=== PATIENT | male | born 1940 | race Caucasian/White ===

== ENCOUNTER → 2016-06-06 | Outpatient (REF) | payer MEDICARE ==
[2016-06-06 12:16] LABS: MEAN CORPUSCULAR HEMOGLOBIN 33.8 pg (27.0-33.0); MEAN CORPUSCULAR HGB CONC 34.3 g/dl (32.0-36.5); MEAN CORPUSCULAR VOLUME 98.8 fl (80.0-96.0); RED CELL DISTRIBUTION WIDTH 12.8 % (11.5-14.5); WHITE BLOOD COUNT 3.6 K/mm3 (4.0-10.0)
[2016-06-06 12:17] LABS: ALBUMIN 3.9 GM/DL (3.2-5.2); ALBUMIN/GLOBULIN RATIO 1.18 (1.00-1.93); BILIRUBIN,TOTAL 0.4 MG/DL (0.2-1.0); CALCIUM LEVEL 9.3 MG/DL (8.8-10.2); CREATININE FOR GFR 1.47 MG/DL (0.70-1.30); GLOMERULAR FILTRATION RATE 49.5 (>42); POTASSIUM SERUM 4.7 MEQ/L (3.5-5.1); TOTAL PROTEIN 7.2 GM/DL (6.4-8.2)
== END ==
LOC: M LABDRAW1 11:25
PROVIDERS: ATTEND Nurse Practitioner Family
DX: E55.9 Vitamin D deficiency, unspecified (principal); E78.5 Hyperlipidemia, unspecified; I10 Essential (primary) hypertension; D53.9 Nutritional anemia, unspecified

== ENCOUNTER → 2017-02-07 | Outpatient (REF) | payer MEDICARE ==
[2017-02-07 12:32] LABS: MEAN CORPUSCULAR HEMOGLOBIN 33.7 pg (27.0-33.0); MEAN CORPUSCULAR HGB CONC 33.5 g/dl (32.0-36.5); MEAN CORPUSCULAR VOLUME 100.5 fl (80.0-96.0); PLATELET COUNT, AUTOMATED 214 10^3/uL (150-450); RED CELL DISTRIBUTION WIDTH 12.8 % (11.5-14.5); WHITE BLOOD COUNT 5.1 10^3/uL (4.0-10.0)
[2017-02-07 12:43] LABS: ALBUMIN 3.7 GM/DL (3.2-5.2); ALBUMIN/GLOBULIN RATIO 0.95 (1.00-1.93); BILIRUBIN,TOTAL 0.5 MG/DL (0.2-1.0); CALCIUM LEVEL 8.8 MG/DL (8.8-10.2); CREATININE FOR GFR 1.5 MG/DL (0.70-1.30); GLOMERULAR FILTRATION RATE 48.2 (>42); POTASSIUM SERUM 4.4 MEQ/L (3.5-5.1); TOTAL PROTEIN 7.6 GM/DL (6.4-8.2)
== END ==
LOC: M LABDRAW1 10:32
PROVIDERS: ATTEND Nurse Practitioner Family
DX: E78.00 Pure hypercholesterolemia, unspecified (principal); I10 Essential (primary) hypertension

== ENCOUNTER → 2017-06-13 | Outpatient (REF) | payer MEDICARE ==
[2017-06-13 13:19] LABS: HEMATOCRIT 39.5 % (42.0-52.0); MEAN CORPUSCULAR HEMOGLOBIN 31.9 pg (27.0-33.0); MEAN CORPUSCULAR HGB CONC 32.9 g/dl (32.0-36.5); MEAN CORPUSCULAR VOLUME 96.8 fl (80.0-96.0); PLATELET COUNT, AUTOMATED 152 10^3/uL (150-450); RED BLOOD COUNT 4.08 10^6/uL (4.30-6.10); RED CELL DISTRIBUTION WIDTH 13.1 % (11.5-14.5); WHITE BLOOD COUNT 3.7 10^3/uL (4.0-10.0)
[2017-06-13 13:42] LABS: ESTIMATED AVERAGE GLUCOSE 123 MG/DL (60-110); HEMOGLOBIN A1c 5.9 %
[2017-06-13 13:43] LABS: TOTAL 25(OH) VITAMIN D 22.4 NG/ML (30.0-100.0)
[2017-06-13 13:44] LABS: ALBUMIN 3.6 GM/DL (3.2-5.2); ALBUMIN/GLOBULIN RATIO 1.09 (1.00-1.93); ALKALINE PHOSPHATASE 80 U/L (45-117); ALT/SGPT 17 U/L (12-78); ANION GAP 8 MEQ/L (8-16); AST/SGOT 19 U/L (7-37); BILIRUBIN,TOTAL 0.4 MG/DL (0.2-1.0); BLOOD UREA NITROGEN 21 MG/DL (7-18); CALCIUM LEVEL 8.3 MG/DL (8.8-10.2); CARBON DIOXIDE LEVEL 26 MEQ/L (21-32); CHLORIDE LEVEL 105 MEQ/L (98-107); CHOLESTEROL LEVEL 184 MG/DL (<200); CHOLESTEROL RISK RATIO 5.257 (<5); CREATININE FOR GFR 1.33 MG/DL (0.70-1.30); FREE T4 0.74 NG/DL (0.76-1.46); GLOMERULAR FILTRATION RATE 55.2 (>42); GLUCOSE, FASTING 101 MG/DL (70-100); HDL CHOLESTEROL 35 MG/DL (>40); LDL CHOLESTEROL 85.2 MG/DL (<100); NON-HDL-C 149 MG/DL; POTASSIUM SERUM 4.1 MEQ/L (3.5-5.1); SODIUM LEVEL 139 MEQ/L (136-145); TOTAL PROTEIN 6.9 GM/DL (6.4-8.2); TRIGLYCERIDES LEVEL 319 MG/DL (<150)
== END ==
LOC: M LABDRAW1 12:45
DX: E78.5 Hyperlipidemia, unspecified (principal); N18.3 Chronic kidney disease, stage 3 (moderate); I12.9 Hypertensive chronic kidney disease with stage 1 through stage 4 chronic kidney disease, or unspecified chronic kidney disease; E55.9 Vitamin D deficiency, unspecified; Z79.899 Other long term (current) drug therapy
CPT/HCPCS: 84443

== ENCOUNTER 2017-08-02 08:40 | Day surgery (SDC) | payer MEDICARE ==
[2017-08-02] MEDS: PROPARACAINE 0.5% OPHTH SOL 15ML OS (09:27)
[2017-08-02] MEDS: TROPICAMIDE 1% OPHTH SOLN 2ML OS (09:27)
[2017-08-02] MEDS: PHENYLEPHRINE 2.5% OPHTH SOL 2ML OS (09:27)
[2017-08-02] MEDS: OFLOXACIN 0.3 % (OCUFLOX) OPTH SOL 5ML OS (09:27)
[2017-08-02] MEDS ORDERED: fentaNYL 100 MCG/2 ML INJECTION (J3010) As Ordered (10:21)
[2017-08-02] MEDS ORDERED: MIDAZOLAM INJ 2 MG/2 ML VIAL (J2250) As Ordered (10:21)
[2017-08-02] MEDS: DUOVISC (0.50ML VISCOAT/0.55ML PROVISC) OPHTH KIT As Ordered (11:04)
[2017-08-02] MEDS: BALANCED SALT IRRIGATION SOLUTION 500ML BAG (FOR OR EYE MACHINE) As Ordered (11:04)
[2017-08-02] MEDS: POVIDONE-IODINE 5% OPHTH PREP SOL 30ML As Ordered (11:04)
[2017-08-02] MEDS: LIDOCAINE 0.75%/EPINEPHRINE 0.025% IN BSS 1ML SYR INTRACAMERAL (OR ONLY) As Ordered (11:05)
[2017-08-02] MEDS: CEFUROXIME 1MG/0.1ML INTRACAMERAL INJ As Ordered (11:05)
== END 2017-08-02 12:09 | disposition home or self-care (01) ==
LOC: M SDC 08:40
DX: H25.12 Age-related nuclear cataract, left eye (principal); H57.9 Unspecified disorder of eye and adnexa; I12.9 Hypertensive chronic kidney disease with stage 1 through stage 4 chronic kidney disease, or unspecified chronic kidney disease; E78.00 Pure hypercholesterolemia, unspecified; M19.012 Primary osteoarthritis, left shoulder; M54.30 Sciatica, unspecified side; R29.898 Other symptoms and signs involving the musculoskeletal system; G47.9 Sleep disorder, unspecified; N18.3 Chronic kidney disease, stage 3 (moderate); D63.1 Anemia in chronic kidney disease; Z88.4 Allergy status to anesthetic agent; Z79.899 Other long term (current) drug therapy; Z79.82 Long term (current) use of aspirin; Z87.891 Personal history of nicotine dependence
CPT/HCPCS: 66982

== ENCOUNTER 2017-08-09 09:48 | Day surgery (SDC) | payer MEDICARE ==
[~2017-08-09 09:48] MED LIST: PROPARACAINE 0.5% OPHTH SOL 15ML OD
[2017-08-09] MEDS: TROPICAMIDE 1% OPHTH SOLN 2ML OD (10:28)
[2017-08-09] MEDS: OFLOXACIN 0.3 % (OCUFLOX) OPTH SOL 5ML OD (10:28)
[2017-08-09] MEDS: PHENYLEPHRINE 2.5% OPHTH SOL 2ML OD (10:28)
[2017-08-09] MEDS ORDERED: fentaNYL 100 MCG/2 ML INJECTION (J3010) As Ordered (10:58)
[2017-08-09] MEDS ORDERED: MIDAZOLAM INJ 2 MG/2 ML VIAL (J2250) As Ordered (10:58)
[2017-08-09] MEDS ORDERED: LABETALOL HCL 100 MG/20 ML VIAL As Ordered (11:32)
[2017-08-09] MEDS: POVIDONE-IODINE 5% OPHTH PREP SOL 30ML As Ordered (11:35)
[2017-08-09] MEDS: BALANCED SALT IRRIGATION SOLUTION 500ML BAG (FOR OR EYE MACHINE) As Ordered (11:35)
[2017-08-09] MEDS: ACETYLCHOLINE OPHTH SOLN 1% 2ML (MIOCHOL-E) As Ordered (11:36)
[2017-08-09] MEDS: DUOVISC (0.50ML VISCOAT/0.55ML PROVISC) OPHTH KIT As Ordered (11:36)
[2017-08-09] MEDS: TETRACAINE 0.5% OPHTH SOLN 4ML As Ordered (11:36)
[2017-08-09] MEDS: CEFUROXIME 1MG/0.1ML INTRACAMERAL INJ As Ordered (11:36)
== END 2017-08-09 12:16 | disposition home or self-care (01) ==
LOC: M SDC 09:48
DX: H25.11 Age-related nuclear cataract, right eye (principal); H57.03 Miosis; I12.9 Hypertensive chronic kidney disease with stage 1 through stage 4 chronic kidney disease, or unspecified chronic kidney disease; E78.5 Hyperlipidemia, unspecified; N18.3 Chronic kidney disease, stage 3 (moderate); D63.8 Anemia in other chronic diseases classified elsewhere; Z88.4 Allergy status to anesthetic agent; Z79.899 Other long term (current) drug therapy
CPT/HCPCS: 66982

== ENCOUNTER → 2018-05-24 | Outpatient (REF) | payer MEDICARE ==
[~2018-05-24] MED LIST changes: +ASPI1TAB PO; +ATEN50TA2 PO; +MULT1TAB10 PO; -PROPARACAINE 0.5% OPHTH SOL 15ML OD; +SIMV20TA2 PO; +VITA-110 PO; +VITA50TA15 PO
[2018-05-24 12:04] LABS: HEMATOCRIT 39.7 % (42.0-52.0); HEMOGLOBIN 13.1 g/dl (13.5-17.5); MEAN CORPUSCULAR HEMOGLOBIN 32.7 pg (27.0-33.0); PLATELET COUNT, AUTOMATED 201 10^3/uL (150-450); RED BLOOD COUNT 4.01 10^6/uL (4.30-6.10); WHITE BLOOD COUNT 3.5 10^3/uL (4.0-10.0)
[2018-05-24 12:05] LABS: HEMATOCRIT 39.7 % (42.0-52.0)
[2018-05-24 13:09] LABS: ALBUMIN 3.7 GM/DL (3.2-5.2); BILIRUBIN,TOTAL 0.4 MG/DL (0.2-1.0); CALCIUM LEVEL 8.4 MG/DL (8.8-10.2); CHOLESTEROL RISK RATIO 4.405 (<5); CREATININE FOR GFR 1.41 MG/DL (0.70-1.30); FREE T4 0.81 NG/DL (0.76-1.46); GLOMERULAR FILTRATION RATE 51.6 (>42); POTASSIUM SERUM 4.4 MEQ/L (3.5-5.1); THYROID STIMULATING HORMONE 4.63 uIU/ML (0.358-3.740); TOTAL 25(OH) VITAMIN D 37.8 NG/ML (30.0-100.0); TOTAL PROTEIN 7.4 GM/DL (6.4-8.2)
[2018-05-24 13:52] LABS: HEMOGLOBIN A1c 6.2 %
== END ==
LOC: M LABDRAW1 09:30
PROVIDERS: ATTEND Family Medicine
DX: I12.9 Hypertensive chronic kidney disease with stage 1 through stage 4 chronic kidney disease, or unspecified chronic kidney disease (principal); E03.9 Hypothyroidism, unspecified; R73.03 Prediabetes; D53.9 Nutritional anemia, unspecified; Z79.899 Other long term (current) drug therapy

== ENCOUNTER → 2018-06-11 | Outpatient (REF) | payer MEDICARE | LOC: M SFHCPLAZ 11:28 | PROVIDERS: ATTEND Family Medicine | DX: D53.9 Nutritional anemia, unspecified (principal) | CPT/HCPCS: 36415; 82728; 83550; G0463 ==

== ENCOUNTER → 2019-05-07 | Outpatient (REF) | payer MEDICARE ==
[~2019-05-07] MED LIST changes: -ASPI1TAB PO; +ASPI81TA26 PO; -SIMV20TA2 PO; +SIMV20TA22 PO
[2019-05-07 11:00] LABS: HEMATOCRIT 36.3 % (42.0-52.0); HEMOGLOBIN 11.3 g/dl (13.5-17.5); MEAN CORPUSCULAR HEMOGLOBIN 32.1 pg (27.0-33.0); MEAN CORPUSCULAR HGB CONC 31.1 g/dl (32.0-36.5); MEAN CORPUSCULAR VOLUME 103.1 fl (80.0-96.0); PLATELET COUNT, AUTOMATED 222 10^3/uL (150-450); RED BLOOD COUNT 3.52 10^6/uL (4.30-6.10); WHITE BLOOD COUNT 3.2 10^3/uL (4.0-10.0)
[2019-05-07 11:17] LABS: ALBUMIN 3.4 GM/DL (3.2-5.2); BILIRUBIN,TOTAL 0.3 MG/DL (0.2-1.0); CALCIUM LEVEL 8.4 MG/DL (8.8-10.2); CREATININE FOR GFR 1.52 MG/DL (0.70-1.30); FREE T4 0.91 NG/DL (0.76-1.46); GLOMERULAR FILTRATION RATE 47.2 (>35); THYROID STIMULATING HORMONE 3.63 uIU/ML (0.358-3.740); TOTAL PROTEIN 7.2 GM/DL (6.4-8.2)
== END ==
LOC: M SFHCPLAZ 08:47
PROVIDERS: ATTEND Family Medicine
DX: D53.9 Nutritional anemia, unspecified (principal); I12.9 Hypertensive chronic kidney disease with stage 1 through stage 4 chronic kidney disease, or unspecified chronic kidney disease; N18.3 Chronic kidney disease, stage 3 (moderate); E03.9 Hypothyroidism, unspecified; R73.03 Prediabetes
CPT/HCPCS: 36415; 80053; 83036; 84439; 84443; 85027; G0463

== ENCOUNTER → 2019-05-16 | Outpatient (REF) | payer MEDICARE ==
[2019-05-16 15:51] LABS: HEMATOCRIT 36.8 % (42.0-52.0)
[2019-05-16 16:05] LABS: BASO % 0.3 % (0.0-1.0); EOS # 0.1 10^3/uL (0.0-0.5); HEMATOCRIT 36.8 % (42.0-52.0); HEMOGLOBIN 11.5 g/dl (13.5-17.5); LYMPH # 0.5 10^3/uL (1.5-5.0); LYMPH % 17.1 % (24.0-44.0); MEAN CORPUSCULAR HEMOGLOBIN 31.9 pg (27.0-33.0); MEAN CORPUSCULAR HGB CONC 31.3 g/dl (32.0-36.5); MEAN CORPUSCULAR VOLUME 101.9 fl (80.0-96.0); MONO # 0.4 10^3/uL (0.0-0.8); MONO % 12.4 % (0.0-5.0); NEUTROPHILS % 66.5 % (36.0-66.0); PLATELET COUNT, AUTOMATED 217 10^3/uL (150-450); RED BLOOD COUNT 3.61 10^6/uL (4.30-6.10)
[2019-05-16 16:29] LABS: ALBUMIN 3.5 GM/DL (3.2-5.2); BILIRUBIN,TOTAL 0.4 MG/DL (0.2-1.0); CREATININE FOR GFR 1.43 MG/DL (0.70-1.30); GLOMERULAR FILTRATION RATE 50.7 (>35); PERCENT SATURATION 30.6 % (19.7-50.0); POTASSIUM SERUM 4.4 MEQ/L (3.5-5.1); TOTAL PROTEIN 7.6 GM/DL (6.4-8.2)
== END ==
LOC: M LABDRAW1 12:54
PROVIDERS: ATTEND Family Medicine
DX: D53.9 Nutritional anemia, unspecified (principal); D72.819 Decreased white blood cell count, unspecified

== ENCOUNTER → 2019-11-03 | Outpatient (REF) | payer MEDICARE ==
[2019-11-03 13:09] LABS: BASO % 0.3 % (0.0-1.0); EOS # 0.1 10^3/uL (0.0-0.5); EOS % 2.7 % (0.0-3.0); HEMATOCRIT 35.5 % (42.0-52.0); HEMOGLOBIN 11.3 g/dl (13.5-17.5); LYMPH # 0.4 10^3/uL (1.5-5.0); LYMPH % 12.1 % (24.0-44.0); MEAN CORPUSCULAR HEMOGLOBIN 31.8 pg (27.0-33.0); MEAN CORPUSCULAR HGB CONC 31.8 g/dl (32.0-36.5); MONO # 0.5 10^3/uL (0.0-0.8); MONO % 13.7 % (0.0-5.0); NEUTROPHILS # 2.6 10^3/uL (1.5-8.5); NEUTROPHILS % 70.7 % (36.0-66.0); PLATELET COUNT, AUTOMATED 234 10^3/uL (150-450); RED BLOOD COUNT 3.55 10^6/uL (4.30-6.10); WHITE BLOOD COUNT 3.6 10^3/uL (4.0-10.0)
[2019-11-03 13:32] LABS: HEMOGLOBIN A1c 5.7 %
[2019-11-03 13:39] LABS: ALBUMIN 3.6 GM/DL (3.2-5.2); BILIRUBIN,TOTAL 0.5 MG/DL (0.2-1.0); CALCIUM LEVEL 9.4 MG/DL (8.8-10.2); CHOLESTEROL RISK RATIO 3.8 (<5); CREATININE FOR GFR 1.64 MG/DL (0.70-1.30); FREE T4 0.94 NG/DL (0.76-1.46); GLOMERULAR FILTRATION RATE 43.1 (>35); THYROID STIMULATING HORMONE 3.39 uIU/ML (0.358-3.740); TOTAL PROTEIN 8.2 GM/DL (6.4-8.2)
== END ==
LOC: M SFHCPLAZ 10:08
PROVIDERS: ATTEND Family Medicine
DX: N18.3 Chronic kidney disease, stage 3 (moderate) (principal); D72.819 Decreased white blood cell count, unspecified; I12.9 Hypertensive chronic kidney disease with stage 1 through stage 4 chronic kidney disease, or unspecified chronic kidney disease; E78.2 Mixed hyperlipidemia; E03.9 Hypothyroidism, unspecified; R73.03 Prediabetes

== ENCOUNTER → 2020-03-16 | Outpatient (REF) | payer MEDICARE ==
[2020-03-16 11:00] LABS: BASO % 0.2 % (0.0-1.0); EOS # 0.3 10^3/uL (0.0-0.5); EOS % 5.7 % (0.0-3.0); HEMATOCRIT 37.3 % (42.0-52.0); HEMOGLOBIN 11.7 g/dl (13.5-17.5); LYMPH # 0.5 10^3/uL (1.5-5.0); LYMPH % 11.4 % (24.0-44.0); MEAN CORPUSCULAR HEMOGLOBIN 31.4 pg (27.0-33.0); MEAN CORPUSCULAR HGB CONC 31.4 g/dl (32.0-36.5); MONO # 0.6 10^3/uL (0.0-0.8); MONO % 12.6 % (0.0-5.0); NEUTROPHILS % 69.2 % (36.0-66.0); PLATELET COUNT, AUTOMATED 295 10^3/uL (150-450); RED BLOOD COUNT 3.73 10^6/uL (4.30-6.10); WHITE BLOOD COUNT 4.4 10^3/uL (4.0-10.0)
[2020-03-16 11:33] LABS: CREATININE FOR GFR 1.5 MG/DL (0.70-1.30); GLOMERULAR FILTRATION RATE 47.8 (>35); POTASSIUM SERUM 4.7 MEQ/L (3.5-5.1)
== END ==
LOC: M PLALAB 08:02
PROVIDERS: ATTEND Family Medicine
DX: R06.00 Dyspnea, unspecified (principal); D72.819 Decreased white blood cell count, unspecified; I12.9 Hypertensive chronic kidney disease with stage 1 through stage 4 chronic kidney disease, or unspecified chronic kidney disease; N18.30 Chronic kidney disease, stage 3 unspecified

== ENCOUNTER → 2020-03-16 | Outpatient (CLI) | payer MEDICARE ==
--- NOTE | 2020-03-16 13:29 | REPPI ---
INDICATION: R06.00 DYSPNEA ON EXERTION. COMPARISON: Comparison chest x-ray July 18, 2017. TECHNIQUE: Two views.. FINDINGS: Right hemidiaphragm is slightly elevated. There is chronic pleuroparenchymal fibrosis in the right lower and mid lung zone with stable right lateral pleural thickening. There is diffuse interstitial lung disease consistent with fibrosis. This is a little more prominent diffusely but not new when compared to the July 18, 2017 study. No definite focal infiltrate is seen. Lateral view shows right upper lobe perihilar fibrosis essentially unchanged. Heart is not enlarged. There is no evidence of pleural effusion. There are mild degenerative changes in the thoracic spine. IMPRESSION: Evidence of COPD with fairly advanced diffuse interstitial fibrosis, radiographically more pronounced than on the prior study. There is chronic coarse pleuroparenchymal fibrosis right perihilar region and along the minor fissure on the right.. <Electronically signed by Taj Meza > 03/16/20 0025
== END ==
LOC: M PLAIMG 09:37
PROVIDERS: ATTEND Family Medicine
DX: M51.34 Other intervertebral disc degeneration, thoracic region (principal); R06.00 Dyspnea, unspecified; D72.819 Decreased white blood cell count, unspecified; I12.9 Hypertensive chronic kidney disease with stage 1 through stage 4 chronic kidney disease, or unspecified chronic kidney disease; N18.30 Chronic kidney disease, stage 3 unspecified
CPT/HCPCS: 36415; 71046; 80048; 84443; 85025; 85379; 93005; G0463

== ENCOUNTER → 2020-03-17 | Outpatient (CLI) | payer MEDICARE ==
[~2020-03-17] MED LIST changes: +ISOVUE-370 76% 100ML VIAL As Ordered ONE
--- NOTE | 2020-03-17 10:01 | REP ---
INDICATION: ELEVATED D DIMER. COMPARISON: Comparison is made with the chest x-ray from 16 March 2020. Comparison chest x-ray July 18, 2017. No prior CT.. TECHNIQUE: Contrast dose: 75 ML of Isovue [address] technique: Helical scanning is acquired and overlapping 1.5 mm and contiguous 3 mm axial images are reformatted. In addition, maximum intensity projection and multiplanar re-formation images are generated in sagittal and coronal imaging projections. FINDINGS: There is good opacification in the pulmonary arterial tree. There is no evidence of vessel cut off or filling defect to suggest pulmonary embolus. Homogeneous opacity is seen in the thoracic aorta. There is no evidence of aneurysm or dissection. Lung window settings demonstrate show diffuse interstitial lung disease with written it reticulonodular pattern in the upper lobes and mid lung zones and predominantly peripheral interstitial fibrosis pattern in the lower lobes. There are areas of pleural thickening in the lower lobes bilaterally, right more extensively than left. Fissural thickening is seen along the my major fissure and minor fissure on the right. Coarse linear bands of pleuroparenchymal fibrosis are present here in the right lung. There are multiple subcentimeter scattered bilateral upper lobe noncalcified pulmonary nodules in addition to the innumerable tiny 1-2 mm nodular opacity seen. The largest pulmonary nodules are in the upper lobes. There is a 10 mm nodule on the right and a 7 mm nodule is visible on the left. There are scattered subcarinal left hilar and right hilar lymph nodes. Several of these small lymph nodes at of granulomatous calcifications within them. No definite adenopathy. In the upper abdomen, gallstones are noted in the gallbladder lumen. There is a cyst in the right kidney measuring 13 mm. Normal adrenal glands are seen. There are some calcific upper abdominal katelyn residuals. There are intrarenal calculi in the right kidney. Visualized upper abdominal structures are otherwise unremarkable. IMPRESSION: Evidence of extensive granulomatous disease and interstitial fibrosis with a marked reticulonodular pattern. There are multiple subcentimeter noncalcified pulmonary nodules also noted and there are coarse areas of bandlike pleuroparenchymal fibrosis. The changes are most likely chronic based on comparison with the prior radiograph from July 18, 2017. However, interval CT follow-up is recommended regarding the larger pulmonary nodules. Three month follow-up chest CT suggested. Intrarenal nephrolithiasis right kidney. Cholelithiasis.. No CT evidence of pulmonary embolus. <Electronically signed by Taj Meza > 03/17/20 0937
== END ==
LOC: M RAD 09:18
PROVIDERS: ATTEND Family Medicine
DX: R79.89 Other specified abnormal findings of blood chemistry (principal); J84.10 Pulmonary fibrosis, unspecified; R91.8 Other nonspecific abnormal finding of lung field
CPT/HCPCS: 71275; Q9967

== ENCOUNTER → 2020-05-24 | Outpatient (CLI) | payer MEDICARE ==
[~2020-05-24] MED LIST changes: -ISOVUE-370 76% 100ML VIAL As Ordered ONE
--- NOTE | 2020-05-24 14:28 | REP ---
INDICATION: ABN FINDING OF LUNG. COMPARISON: Comparison chest CT 5 March 17, 2020.. TECHNIQUE: Helical scanning is acquired. 3 mm axial images are generated. Coronal and sagittal MPR and coronal MIP images are generated. 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 Axial images demonstrate coarse bandlike area of pleuroparenchymal fibrosis in the right chest unchanged from the comparison study. Reticulonodular interstitial disease is again noted with innumerable tiny nodular changes. In the upper lobes, there are morphologically larger a noncalcified nodules. Largest of these is in the right lung apex measuring 9 mm. There is a 7 mm nodule in the left lung apex. These 2 larger nodules are unchanged. The smaller nodules are unchanged as well. There are granulomatous katelyn residuals in the hilar and mediastinal regions. Vascular calcification is again noted. There is no evidence of pleural or pericardial effusion. Cholelithiasis is noted. Normal adrenal glands. Intrarenal nephrolithiasis is seen in the right kidney. IMPRESSION: No change in the extensive granulomatous disease disease with interstitial and coarse linear fibrosis. Numerous tiny reticulonodular densities persist. The larger nodules identified previously in the upper lung zones are unchanged in the short interval since the March 17 2020 study. Is no new abnormality. <Electronically signed by Taj Meza > 05/24/20 [id number]
== END ==
LOC: M RAD 10:23
PROVIDERS: ATTEND Internal Medicine Pulmonary Disease
DX: R91.8 Other nonspecific abnormal finding of lung field (principal)

== ENCOUNTER → 2020-08-20 | Outpatient (REF) | payer MEDICARE ==
[2020-08-20 12:06] LABS: BASO % 0.3 % (0.0-1.0); EOS # 0.1 10^3/uL (0.0-0.5); EOS % 4.3 % (0.0-3.0); HEMATOCRIT 41.3 % (42.0-52.0); HEMOGLOBIN 13.5 g/dl (13.5-17.5); LYMPH # 0.6 10^3/uL (1.5-5.0); LYMPH % 20.2 % (24.0-44.0); MEAN CORPUSCULAR HEMOGLOBIN 33.2 pg (27.0-33.0); MEAN CORPUSCULAR HGB CONC 32.7 g/dl (32.0-36.5); MEAN CORPUSCULAR VOLUME 101.5 fl (80.0-96.0); MONO # 0.4 10^3/uL (0.0-0.8); MONO % 11.9 % (2.0-8.0); NEUTROPHILS # 1.9 10^3/uL (1.5-8.5); NEUTROPHILS % 62.3 % (36.0-66.0); PLATELET COUNT, AUTOMATED 187 10^3/uL (150-450); RED BLOOD COUNT 4.07 10^6/uL (4.30-6.10)
[2020-08-20 12:49] LABS: CALCIUM LEVEL 9.7 MG/DL (8.8-10.2); CREATININE FOR GFR 1.37 MG/DL (0.70-1.30); FREE T4 0.83 NG/DL (0.76-1.46); POTASSIUM SERUM 4.3 MEQ/L (3.5-5.1); THYROID STIMULATING HORMONE 6.23 uIU/ML (0.358-3.740)
== END ==
LOC: M SFHCPLAZ 10:58
PROVIDERS: ATTEND Family Medicine
DX: N18.31 Chronic kidney disease, stage 3a (principal); D72.819 Decreased white blood cell count, unspecified; E03.9 Hypothyroidism, unspecified; I12.9 Hypertensive chronic kidney disease with stage 1 through stage 4 chronic kidney disease, or unspecified chronic kidney disease
CPT/HCPCS: 36415; 80048; 84439; 84443; 85025; G0463

== ENCOUNTER → 2020-11-29 | Outpatient (CLI) | payer MEDICARE ==
--- NOTE | 2020-11-29 13:42 | REP ---
INDICATION: ABN FINDING OF LUNG COMPARISON: 05/24/2020 and 03/17/2020 TECHNIQUE: Standard helical technique without intravenous contrast FINDINGS: The mediastinum and pulmonary aj are unchanged. There is adenopathy some with calcifications status quo. There are no pleural or pericardial effusions. There is no change in the imaged upper abdomen. There is cholelithiasis and right-sided nephroliths. There is no significant change in appearance of the imaged osseous structures. Evaluation of the lung pa shows large bilateral conglomerate asymmetric densities some of which are pleural based and having a stable appearance. Diffuse reticulonodular densities are also noted status quo. There is cylindrical bronchiectasis status quo. Numerous scattered calcifications are again noted status quo. The 9 mm sized spiculated right upper lobe nodules unchanged. The 8 mm sized spiculated left upper lobe nodule is unchanged. The 1 cm sized spiculated left lower lobe nodule is unchanged. Other smaller spiculated appearing nodules have a stable appearance. These are numerous. IMPRESSION: Stable appearing but extensive lung field abnormalities as described above. There is no revised Fleischner society criteria on the recommendation for follow-up of such complex findings. Follow-up should be based on clinical assessment. <Electronically signed by Johny Lawson > 11/29/20 2042
== END ==
LOC: M PLAIMG 12:52
PROVIDERS: ATTEND Internal Medicine Pulmonary Disease
DX: R91.8 Other nonspecific abnormal finding of lung field (principal)

== ENCOUNTER → 2021-06-06 | Outpatient (CLI) | payer MEDICARE | LOC: M RAD 14:21 | PROVIDERS: ATTEND Internal Medicine Pulmonary Disease | DX: R91.8 Other nonspecific abnormal finding of lung field (principal) ==

== ENCOUNTER → 2021-06-23 | Outpatient (CLI) | payer MEDICARE ==
[2021-06-23 17:06] LABS: BASO % 0.4 % (0.0-1.0); EOS # 0.1 10^3/uL (0.0-0.5); EOS % 4.7 % (0.0-3.0); HEMATOCRIT 39.1 % (42.0-52.0); HEMOGLOBIN 12.5 g/dl (13.5-17.5); LYMPH # 0.5 10^3/uL (1.5-5.0); LYMPH % 20.3 % (24.0-44.0); MEAN CORPUSCULAR HEMOGLOBIN 32.8 pg (27.0-33.0); MEAN CORPUSCULAR VOLUME 102.6 fl (80.0-96.0); MONO # 0.3 10^3/uL (0.0-0.8); MONO % 12.1 % (2.0-8.0); NEUTROPHILS # 1.4 10^3/uL (1.5-8.5); NEUTROPHILS % 61.2 % (36.0-66.0); PLATELET COUNT, AUTOMATED 171 10^3/uL (150-450); RED BLOOD COUNT 3.81 10^6/uL (4.30-6.10); WHITE BLOOD COUNT 2.3 10^3/uL (4.0-10.0)
[2021-06-23 17:30] LABS: CALCIUM LEVEL 9.2 MG/DL (8.8-10.2); CHOLESTEROL RISK RATIO 4.025 (<5); CREATININE FOR GFR 1.55 MG/DL (0.70-1.30); FREE T4 0.87 NG/DL (0.76-1.46); GLOMERULAR FILTRATION RATE 45.8 (>35); POTASSIUM SERUM 4.5 MEQ/L (3.5-5.1); THYROID STIMULATING HORMONE 6.08 uIU/ML (0.358-3.740)
[2021-06-23 17:33] LABS: HEMOGLOBIN A1c 5.9 %
== END ==
LOC: M PLALAB 13:07
PROVIDERS: ATTEND Family Medicine
DX: D72.819 Decreased white blood cell count, unspecified (principal); N18.31 Chronic kidney disease, stage 3a; E78.2 Mixed hyperlipidemia; E03.9 Hypothyroidism, unspecified; Z13.1 Encounter for screening for diabetes mellitus; Z79.899 Other long term (current) drug therapy

== ENCOUNTER → 2022-04-19 | Outpatient (CLI) | payer MEDICARE ==
[2022-04-19 15:37] LABS: BASO % 0.3 % (0.0-1.0); EOS # 0.1 10^3/uL (0.0-0.5); EOS % 2.5 % (0.0-3.0); HEMOGLOBIN 10.3 g/dl (13.5-17.5); LYMPH # 0.4 10^3/uL (1.5-5.0); LYMPH % 13.1 % (24.0-44.0); MEAN CORPUSCULAR HEMOGLOBIN 31.3 pg (27.0-33.0); MEAN CORPUSCULAR HGB CONC 30.3 g/dl (32.0-36.5); MEAN CORPUSCULAR VOLUME 103.3 fl (80.0-96.0); MONO # 0.4 10^3/uL (0.0-0.8); MONO % 11.8 % (2.0-8.0); NEUTROPHILS # 2.3 10^3/uL (1.5-8.5); NEUTROPHILS % 71.7 % (36.0-66.0); PLATELET COUNT, AUTOMATED 254 10^3/uL (150-450); RED BLOOD COUNT 3.29 10^6/uL (4.30-6.10); WHITE BLOOD COUNT 3.2 10^3/uL (4.0-10.0)
[2022-04-19 16:12] LABS: FREE T4 1.01 NG/DL (0.89-1.76)
[2022-04-19 16:18] LABS: IRON (FE) 41 UG/DL (65-175)
[2022-04-19 16:19] LABS: ALKALINE PHOSPHATASE 87 U/L (46-116); ALT/SGPT < 9 U/L (7.0-40); AST/SGOT 30 U/L (<34); BILIRUBIN,TOTAL 0.4 MG/DL (0.3-1.2); BLOOD UREA NITROGEN 27 MG/DL (9-23); CALCIUM LEVEL 9.4 MG/DL (8.3-10.6); CARBON DIOXIDE LEVEL 26 MMOL/L (20-31); CHLORIDE LEVEL 101 MMOL/L (98-107); CREATININE FOR GFR 1.32 MG/DL (0.70-1.30); GLOMERULAR FILTRATION RATE 55.1 (>35); GLUCOSE, FASTING 96 MG/DL (74-106); PERCENT SATURATION 18.6 % (19.7-50.0); POTASSIUM SERUM 4.9 MMOL/L (3.5-5.1); SODIUM LEVEL 139 MMOL/L (136-145); TOTAL IRON BINDING CAPACITY 221 UG/DL (250-425); TOTAL PROTEIN 7.4 G/DL (5.7-8.2)
[2022-04-19 16:23] LABS: THYROID STIMULATING HORMONE 3.515 uIU/ML (0.55-4.78)
== END ==
LOC: M PLALAB 11:34
PROVIDERS: ATTEND Physician Assistant
DX: R63.0 Anorexia (principal); R06.02 Shortness of breath; R63.4 Abnormal weight loss; J90 Pleural effusion, not elsewhere classified

== ENCOUNTER → 2022-08-29 | Outpatient (CLI) | payer MEDICARE | LOC: M RAD 15:18 | PROVIDERS: ATTEND Internal Medicine Pulmonary Disease | DX: R91.8 Other nonspecific abnormal finding of lung field (principal) ==

== ENCOUNTER → 2022-12-07 | Outpatient (CLI) | payer MEDICARE | LOC: M RAD 11:01 | PROVIDERS: ATTEND Internal Medicine Pulmonary Disease | DX: R91.8 Other nonspecific abnormal finding of lung field (principal) ==

== ENCOUNTER 2023-07-13 17:11 | Emergency (ER) | payer MEDICARE ==
[2023-07-13 18:06] LABS: HEMATOCRIT 28.7 % (42.0-52.0); HEMOGLOBIN 9.3 g/dl (13.5-17.5); MEAN CORPUSCULAR HEMOGLOBIN 35.1 pg (27.0-33.0); MEAN CORPUSCULAR HGB CONC 32.4 g/dl (32.0-36.5); MEAN CORPUSCULAR VOLUME 108.3 fl (80.0-96.0); PLATELET COUNT, AUTOMATED 203 10^3/uL (150-450); RED BLOOD COUNT 2.65 10^6/uL (4.30-6.10); WHITE BLOOD COUNT 3.6 10^3/uL (4.0-10.0)
[2023-07-13] MEDS: CADEXOMER IODINE 10GM (IODOSORB) GEL TOP SCH (19:06)
[2023-07-13 19:11] VITALS: BP 187/90
[2023-07-13] MEDS: atenoloL 50 MG TAB PO ONE (19:11)
[2023-07-13] MEDS ORDERED: FOAMPAD2 TOP (19:28)
[2023-07-13 19:45] VITALS: BP 179/84; O2SAT 98
== END 2023-07-13 19:57 | disposition home or self-care (01) ==
LOC: EDBD 17:11 → M ED 17:11
DX: L98.9 Disorder of the skin and subcutaneous tissue, unspecified (principal); R58 Hemorrhage, not elsewhere classified; I10 Essential (primary) hypertension; Z79.82 Long term (current) use of aspirin; Z79.899 Other long term (current) drug therapy; Z88.8 Allergy status to other drugs, medicaments and biological substances

== ENCOUNTER 2023-07-15 13:34 | Inpatient (IN) | payer MEDICARE ==
[~2023-07-15] VITALS: Ht 165.1 cm; Wt 45.0 kg
[~2023-07-15 13:34] MED LIST changes: +FOAMPAD2 TOP
[2023-07-15] MEDS: SILVER NITRATE APPLICATOR (1 = QTY 10) TOP ONE (14:20)
[2023-07-15] MEDS: NS 1,000 ML IV ONE (14:52)
[2023-07-15 14:54] LABS: ERYTHROCYTE SEDIMENTATION RATE 42 mm/hr (0-20)
[2023-07-15 14:56] LABS: WHITE BLOOD COUNT 3.3 10^3/uL (4.0-10.0)
[2023-07-15 14:57] LABS: HEMATOCRIT 24.3 % (42.0-52.0); HEMOGLOBIN 7.8 g/dl (13.5-17.5); MEAN CORPUSCULAR HEMOGLOBIN 34.8 pg (27.0-33.0); MEAN CORPUSCULAR HGB CONC 32.1 g/dl (32.0-36.5); MEAN CORPUSCULAR VOLUME 108.5 fl (80.0-96.0); PLATELET COUNT, AUTOMATED 191 10^3/uL (150-450); RED BLOOD COUNT 2.24 10^6/uL (4.30-6.10)
[2023-07-15 14:58] LABS: BASO % 0.3 % (0.0-1.0); EOS % 0.9 % (0.0-3.0); LYMPH # 0.6 10^3/uL (1.5-5.0); MONO # 0.5 10^3/uL (0.0-0.8); MONO % 15.9 % (2.0-8.0); NEUTROPHILS # 2.1 10^3/uL (1.5-8.5)
[2023-07-15 15:07] LABS: INR 1.13; PARTIAL THROMBOPLASTIN TIME 26.7 SECONDS (24.8-34.2); PROTHROMBIN TIME 14.2 SECONDS (12.5-14.5)
[2023-07-15 15:26] LABS: ALBUMIN 2.7 G/DL (3.2-5.2); ALKALINE PHOSPHATASE 64 U/L (46-116); ALT/SGPT 11 U/L (7.0-40); AST/SGOT 16 U/L (<34); BILIRUBIN,DIRECT < 0.1 MG/DL (<0.4); BILIRUBIN,TOTAL 0.2 MG/DL (0.3-1.2); BLOOD UREA NITROGEN 25 MG/DL (9-23); CALCIUM LEVEL 9.9 MG/DL (8.3-10.6); CARBON DIOXIDE LEVEL 32 MMOL/L (20-31); CHLORIDE LEVEL 102 MMOL/L (98-107); CREATININE FOR GFR 1.21 MG/DL (0.70-1.30); GLOMERULAR FILTRATION RATE > 60.0 (>35); GLUCOSE, FASTING 108 MG/DL (74-106); POTASSIUM SERUM 4.2 MMOL/L (3.5-5.1); SODIUM LEVEL 138 MMOL/L (136-145); TOTAL PROTEIN 6.5 G/DL (5.7-8.2)
[2023-07-15 15:37] LABS: PROCALCITONIN 0.16 ng/ml
[2023-07-15 16:59] VITALS: BP 183/79; TEMP 96.8; O2SAT 96
[2023-07-15 17:14] VITALS: BP 171/79; TEMP 97.2; O2SAT 93
[2023-07-15] MEDS ORDERED: B-1250TA3 PO (17:41)
[2023-07-15] MEDS ORDERED: D-40TAB2 PO (17:41)
[2023-07-15] MEDS ORDERED: OYST1TAB PO (17:43)
[2023-07-15] MEDS ORDERED: HOME MED LIST COMPLETE! XX SCH (17:45)
[2023-07-15 17:59] VITALS: BP 189/85; TEMP 96.5; O2SAT 100
[2023-07-15 18:00] VITALS: BP 189/85; TEMP 96.7; O2SAT 97
[2023-07-15] MEDS: atenoloL 50 MG TAB PO SCH (20:57)
[2023-07-15 22:11] LABS: HEMATOCRIT 24.4 % (42.0-52.0); HEMOGLOBIN 8.2 g/dl (13.5-17.5); RED BLOOD COUNT 2.37 10^6/uL (4.30-6.10); WHITE BLOOD COUNT 2.8 10^3/uL (4.0-10.0)
[2023-07-15 22:12] LABS: MEAN CORPUSCULAR HEMOGLOBIN 34.6 pg (27.0-33.0); MEAN CORPUSCULAR HGB CONC 33.6 g/dl (32.0-36.5); PLATELET COUNT, AUTOMATED 150 10^3/uL (150-450)
[2023-07-15 23:18] VITALS: BP 189/84; TEMP 97.8; O2SAT 100
[2023-07-16 03:28] VITALS: BP 163/72; TEMP 97.1; O2SAT 98
[2023-07-16 05:41] LABS: HEMATOCRIT 27.2 % (42.0-52.0); HEMOGLOBIN 9.1 g/dl (13.5-17.5); MEAN CORPUSCULAR HEMOGLOBIN 34.6 pg (27.0-33.0); MEAN CORPUSCULAR HGB CONC 33.5 g/dl (32.0-36.5); MEAN CORPUSCULAR VOLUME 103.4 fl (80.0-96.0); PLATELET COUNT, AUTOMATED 154 10^3/uL (150-450); RED BLOOD COUNT 2.63 10^6/uL (4.30-6.10); WHITE BLOOD COUNT 2.9 10^3/uL (4.0-10.0)
[2023-07-16 06:01] LABS: BLOOD UREA NITROGEN 19 MG/DL (9-23); CALCIUM LEVEL 9.2 MG/DL (8.3-10.6); CARBON DIOXIDE LEVEL 31 MMOL/L (20-31); CHLORIDE LEVEL 103 MMOL/L (98-107); GLOMERULAR FILTRATION RATE > 60.0 (>35); GLUCOSE, FASTING 125 MG/DL (74-106); POTASSIUM SERUM 3.8 MMOL/L (3.5-5.1); SODIUM LEVEL 138 MMOL/L (136-145)
[2023-07-16 07:50] VITALS: BP 147/68; TEMP 98.3; O2SAT 98
[2023-07-16 09:51] LABS: IRON (FE) 76 UG/DL (65-175); TOTAL IRON BINDING CAPACITY 211 UG/DL (250-425)
[2023-07-16 09:53] LABS: FOLATE 11.6 NG/ML (>5.4)
[2023-07-16 09:54] LABS: VITAMIN B12 LEVEL 436 PG/ML (211-911)
[2023-07-16] MEDS: SIMVASTATIN 20 MG TAB PO SCH (11:29)
[2023-07-16] MEDS ORDERED: PROHANCE 279.3MG/ML 5ML VIAL As Ordered ONE (12:05)
[2023-07-16 12:47] VITALS: BP 125/60; TEMP 97; O2SAT 96
[2023-07-16] MEDS ORDERED: LIDOCAINE W/EPINEPHRINE 1% 20ML VIAL SC ONE (15:35)
[2023-07-16 16:00] VITALS: BP 132/64; TEMP 98.6; O2SAT 99
[2023-07-16 19:16] VITALS: BP 144/65; TEMP 98.7; O2SAT 99
[2023-07-16 23:00] VITALS: BP 148/71; TEMP 98.1; O2SAT 98
[2023-07-17 03:34] VITALS: BP 144/68; TEMP 97.8; O2SAT 97
[2023-07-17 05:39] LABS: HEMATOCRIT 27.2 % (42.0-52.0); MEAN CORPUSCULAR HGB CONC 33.1 g/dl (32.0-36.5); MEAN CORPUSCULAR VOLUME 102.6 fl (80.0-96.0); PLATELET COUNT, AUTOMATED 161 10^3/uL (150-450); RED BLOOD COUNT 2.65 10^6/uL (4.30-6.10); WHITE BLOOD COUNT 3.3 10^3/uL (4.0-10.0)
[2023-07-17 06:10] LABS: BLOOD UREA NITROGEN 22 MG/DL (9-23); CARBON DIOXIDE LEVEL 31 MMOL/L (20-31); CHLORIDE LEVEL 103 MMOL/L (98-107); CREATININE FOR GFR 1.14 MG/DL (0.70-1.30); GLOMERULAR FILTRATION RATE > 60.0 (>35); GLUCOSE, FASTING 108 MG/DL (74-106); MAGNESIUM LEVEL 1.9 MG/DL (1.8-2.4); SODIUM LEVEL 137 MMOL/L (136-145)
[2023-07-17 07:38] VITALS: BP 142/67; TEMP 98.2; O2SAT 94
[2023-07-17 08:14] VITALS: O2SAT 94
[2023-07-17] MEDS ORDERED: ALBUTEROL 90 MCG/ACT 8GM HFA INHALER INH PRN (14:25)
[2023-07-17] MEDS: BUDESONIDE 180MCG INHALER (PULMICORT FLEXHALER) INH ONE (15:00)
[2023-07-17] MEDS: LIDOCAINE W/EPINEPHRINE 1% 20ML VIAL SC ONE (16:30)
[2023-07-17 16:42] VITALS: BP 120/64; TEMP 99.6; O2SAT 98
[2023-07-17 17:37] VITALS: BP 117/57; TEMP 98.7; O2SAT 98
[2023-07-17] MEDS: BUDESONIDE 180MCG INHALER (PULMICORT FLEXHALER) INH SCH (20:00)
[2023-07-17 22:00] VITALS: BP 118/58; TEMP 97.7; O2SAT 99
[2023-07-18 06:00] VITALS: BP 134/59; TEMP 98.6; O2SAT 94
[2023-07-18 07:31] LABS: HEMATOCRIT 25.9 % (42.0-52.0); HEMOGLOBIN 8.3 g/dl (13.5-17.5); MEAN CORPUSCULAR HEMOGLOBIN 33.2 pg (27.0-33.0); MEAN CORPUSCULAR VOLUME 103.6 fl (80.0-96.0); PLATELET COUNT, AUTOMATED 154 10^3/uL (150-450); WHITE BLOOD COUNT 3.6 10^3/uL (4.0-10.0)
[2023-07-18 08:00] LABS: BLOOD UREA NITROGEN 24 MG/DL (9-23); CALCIUM LEVEL 8.7 MG/DL (8.3-10.6); CARBON DIOXIDE LEVEL 31 MMOL/L (20-31); CHLORIDE LEVEL 103 MMOL/L (98-107); CREATININE FOR GFR 1.12 MG/DL (0.70-1.30); GLOMERULAR FILTRATION RATE > 60.0 (>35); GLUCOSE, FASTING 106 MG/DL (74-106); POTASSIUM SERUM 4.3 MMOL/L (3.5-5.1); SODIUM LEVEL 140 MMOL/L (136-145)
[2023-07-18 14:00] VITALS: BP 124/55; TEMP 98.2; O2SAT 99
[2023-07-18 22:00] VITALS: BP 126/57; TEMP 98.2; O2SAT 97
[2023-07-19 06:00] VITALS: BP 128/50; TEMP 99.1; O2SAT 99
[2023-07-19 14:00] VITALS: BP 126/49; TEMP 98.4; O2SAT 99
[2023-07-19 20:25] VITALS: BP 125/50; TEMP 98.1; O2SAT 97
[2023-07-19] MEDS: MIRTAZAPINE 15 MG TAB PO SCH (20:47)
[2023-07-20 06:00] VITALS: BP 122/56; TEMP 97.7; O2SAT 98
[2023-07-20 07:24] LABS: HEMOGLOBIN 8.5 g/dl (13.5-17.5); MEAN CORPUSCULAR HEMOGLOBIN 33.2 pg (27.0-33.0); MEAN CORPUSCULAR HGB CONC 31.5 g/dl (32.0-36.5); MEAN CORPUSCULAR VOLUME 105.5 fl (80.0-96.0); PLATELET COUNT, AUTOMATED 186 10^3/uL (150-450); RED BLOOD COUNT 2.56 10^6/uL (4.30-6.10)
[2023-07-20 07:57] LABS: BLOOD UREA NITROGEN 26 MG/DL (9-23); CALCIUM LEVEL 9.4 MG/DL (8.3-10.6); CARBON DIOXIDE LEVEL 30 MMOL/L (20-31); CHLORIDE LEVEL 101 MMOL/L (98-107); CREATININE FOR GFR 1.16 MG/DL (0.70-1.30); GLOMERULAR FILTRATION RATE > 60.0 (>35); GLUCOSE, FASTING 102 MG/DL (74-106); POTASSIUM SERUM 4.3 MMOL/L (3.5-5.1); SODIUM LEVEL 135 MMOL/L (136-145)
[2023-07-20 14:00] VITALS: BP 122/55; TEMP 98.6; O2SAT 99
[2023-07-20 22:00] VITALS: BP 119/52; TEMP 98.1; O2SAT 98
[2023-07-21 06:00] VITALS: BP 122/52; TEMP 99.1; O2SAT 99
[2023-07-21 08:31] VITALS: TEMP 97
[2023-07-21 14:00] VITALS: BP 119/49; TEMP 97.9; O2SAT 98
[2023-07-21 22:00] VITALS: BP 118/49; TEMP 98.8; O2SAT 97
[2023-07-22] VITALS (9 sets, daily range): BP systolic 122–154; BP diastolic 50–88; TEMP 97.5–98.3; O2SAT 92–100
[2023-07-22 07:00] LABS: HEMATOCRIT 24.5 % (42.0-52.0); HEMOGLOBIN 7.7 g/dl (13.5-17.5); MEAN CORPUSCULAR HEMOGLOBIN 33.6 pg (27.0-33.0); MEAN CORPUSCULAR HGB CONC 31.4 g/dl (32.0-36.5); PLATELET COUNT, AUTOMATED 188 10^3/uL (150-450); RED BLOOD COUNT 2.29 10^6/uL (4.30-6.10); WHITE BLOOD COUNT 4.5 10^3/uL (4.0-10.0)
[2023-07-22 07:22] LABS: CALCIUM LEVEL 9.4 MG/DL (8.3-10.6); CREATININE FOR GFR 1.33 MG/DL (0.70-1.30); GLOMERULAR FILTRATION RATE 54.4 (>35); POTASSIUM SERUM 4.6 MMOL/L (3.5-5.1)
[2023-07-22] MEDS: ASPIRIN 81MG ENTERIC TABLET PO SCH (14:31)
[2023-07-22] MEDS: ENOXAPARIN 30MG/0.3ML SYRINGE (J1650 PER 10MG) SC SCH (14:31)
[2023-07-23] MEDS ORDERED: SILVER NITRATE APPLICATOR (1 = QTY 10) As Ordered ONE (05:35)
[2023-07-23 06:17] VITALS: BP 138/67; TEMP 97.9; O2SAT 95
[2023-07-23 07:52] LABS: HEMOGLOBIN 9.4 g/dl (13.5-17.5); MEAN CORPUSCULAR HEMOGLOBIN 32.8 pg (27.0-33.0); MEAN CORPUSCULAR HGB CONC 32.4 g/dl (32.0-36.5); PLATELET COUNT, AUTOMATED 178 10^3/uL (150-450); RED BLOOD COUNT 2.87 10^6/uL (4.30-6.10); WHITE BLOOD COUNT 3.7 10^3/uL (4.0-10.0)
[2023-07-23 14:00] VITALS: BP 100/65; TEMP 98; O2SAT 98
[2023-07-23 20:27] VITALS: BP 130/66; TEMP 97; O2SAT 98
[2023-07-24 04:56] VITALS: BP 132/63; TEMP 97.3; O2SAT 100
[2023-07-24 07:07] LABS: HEMATOCRIT 31.5 % (42.0-52.0); MEAN CORPUSCULAR HEMOGLOBIN 32.4 pg (27.0-33.0); MEAN CORPUSCULAR HGB CONC 31.7 g/dl (32.0-36.5); MEAN CORPUSCULAR VOLUME 101.9 fl (80.0-96.0); PLATELET COUNT, AUTOMATED 181 10^3/uL (150-450); RED BLOOD COUNT 3.09 10^6/uL (4.30-6.10); WHITE BLOOD COUNT 3.8 10^3/uL (4.0-10.0)
[2023-07-24 07:28] LABS: BLOOD UREA NITROGEN 27 MG/DL (9-23); CALCIUM LEVEL 8.9 MG/DL (8.3-10.6); CARBON DIOXIDE LEVEL 31 MMOL/L (20-31); CHLORIDE LEVEL 103 MMOL/L (98-107); CREATININE FOR GFR 1.15 MG/DL (0.70-1.30); GLOMERULAR FILTRATION RATE > 60.0 (>35); GLUCOSE, FASTING 84 MG/DL (74-106); POTASSIUM SERUM 4.7 MMOL/L (3.5-5.1); SODIUM LEVEL 137 MMOL/L (136-145)
[2023-07-24 14:30] VITALS: BP 132/64; TEMP 97.2; O2SAT 93
[2023-07-24 20:49] VITALS: BP 130/62; O2SAT 98
[2023-07-25 06:19] VITALS: BP 127/60; TEMP 97.7; O2SAT 99
[2023-07-25 09:30] VITALS: BP 120/62
[2023-07-25 14:00] VITALS: BP 124/61; TEMP 98.1; O2SAT 98
[2023-07-25] MEDS: ACETAMINOPHEN 500 MG TAB PO PRN (14:25)
[2023-07-25] MEDS ORDERED: ATROPINE SULFATE 1% OPHTH SOLN 2ML BTL SL PRN (16:25)
[2023-07-25] MEDS ORDERED: BISACODYL 10MG SUPP PR PRN (16:25)
[2023-07-25] MEDS ORDERED: ONDANSETRON 4MG ORAL DISINTEGRATING TAB PO PRN (16:25)
[2023-07-25] MEDS ORDERED: MORPHINE 10MG/0.5ML ORAL CONCENTRATE SOLUTION U/D SL PRN (16:25)
[2023-07-25] MEDS ORDERED: FLEET ENEMA PR PRN (16:25)
[2023-07-25] MEDS ORDERED: LORazepam 1 MG TAB PO PRN (16:25)
[2023-07-25] MEDS ORDERED: ACETAMINOPHEN TAB 650MG DOSE (2X325MG) PO PRN (16:25)
[2023-07-25] MEDS ORDERED: SCOPOLAMINE 1MG TRANSDERMAL PATCH TOP PRN (16:25)
[2023-07-25] MEDS ORDERED: MORPHINE 2 MG/ML 1ML VIAL IV PRN (16:25)
[2023-07-25] MEDS ORDERED: HYOSCYAMINE SULFATE 0.125 MG SUBL TABLET PO PRN (16:25)
[2023-07-25] MEDS ORDERED: ONDANSETRON 4MG 2ML VIAL IV PRN (16:25)
[2023-07-26] MEDS ORDERED: HYOS125TA PO (09:59)
[2023-07-26] MEDS ORDERED: ATIV1TAB10 PO (09:59)
[2023-07-26] MEDS ORDERED: MORP1SOL5 PO (09:59)
== END 2023-07-26 11:51 | disposition hospice, home (50) | DRG 607 ==
LOC: EDBD 13:34 → M ED 13:34 → M ED INP 16:31 → M PCU 20:26 → M MSPAV 07-17 17:36
PROVIDERS: ADMIT Internal Medicine; ATTEND Internal Medicine
PROC: 30233N1 Transfusion of Nonautologous Red Blood Cells into Peripheral Vein, Percutaneous Approach (ICD-10-PCS; 2023-07-15)
PROC: 0HB1XZX Excision of Face Skin, External Approach, Diagnostic (ICD-10-PCS; principal; 2023-07-18)
DX: C44.320 Squamous cell carcinoma of skin of unspecified parts of face (principal); D62 Acute posthemorrhagic anemia; J96.11 Chronic respiratory failure with hypoxia; E44.0 Moderate protein-calorie malnutrition; Z68.1 Body mass index [BMI] 19.9 or less, adult; C79.51 Secondary malignant neoplasm of bone; J47.9 Bronchiectasis, uncomplicated; E78.5 Hyperlipidemia, unspecified; J44.9 Chronic obstructive pulmonary disease, unspecified; I16.0 Hypertensive urgency; I10 Essential (primary) hypertension; R20.0 Anesthesia of skin; E55.9 Vitamin D deficiency, unspecified; D53.9 Nutritional anemia, unspecified; J64 Unspecified pneumoconiosis; R63.4 Abnormal weight loss; Z51.5 Encounter for palliative care; Z66 Do not resuscitate; Z99.81 Dependence on supplemental oxygen; Z79.82 Long term (current) use of aspirin; Z79.899 Other long term (current) drug therapy; Z88.4 Allergy status to anesthetic agent; Z86.73 Personal history of transient ischemic attack (TIA), and cerebral infarction without residual deficits

== ENCOUNTER → 2023-07-16 | Outpatient (CLI) | payer MEDICARE ==
[~2023-07-16] MED LIST changes: +ATIV1TAB10 PO; +B-1250TA3 PO; +D-40TAB2 PO; +HYOS125TA PO; +MORP1SOL5 PO; +OYST1TAB PO
== END ==
LOC: M ONCR 13:41
PROVIDERS: ATTEND Radiology Radiation Oncology
DX: Z79.899 Other long term (current) drug therapy (principal)

== ENCOUNTER 2023-07-25 13:11 | Outpatient (RCR) | payer MEDICARE ==
[~2023-07-25 13:11] MED LIST changes: -ATIV1TAB10 PO; -HYOS125TA PO; +ISOVUE-370 76% 100ML VIAL As Ordered ONE; -MORP1SOL5 PO
[2023-07-26] MEDS ORDERED: HYOS125TA PO (09:59)
[2023-07-26] MEDS ORDERED: ATIV1TAB10 PO (09:59)
[2023-07-26] MEDS ORDERED: MORP1SOL5 PO (09:59)
== END 2023-08-14 ==
LOC: M ONCR 13:11
PROVIDERS: ATTEND General Practice
DX: Z51.0 Encounter for antineoplastic radiation therapy (principal); C44.329 Squamous cell carcinoma of skin of other parts of face
CPT/HCPCS: 77387; 77412; Q9967